=== PATIENT | male | born 1960 | race Caucasian/White ===

== ENCOUNTER → 2016-11-26 | Outpatient (CLI) | payer OTHER ==
[~2016-11-26] MED LIST: LEVAQUIN500 M2 PO; LEVOFLOXACIN500 MG PO; LISINOPRIL AND1 TA2 PO; LISINOPRIL10 MG; PERCOCET 325 MG1 TA7 PO; PERCOCET 325 MG1 TAB PO; VICODIN 5/500 505 MG PO
== END | disposition home or self-care (01) ==
LOC: LAB 08:35 → CARD 08:35
DX: R94.31 Abnormal electrocardiogram [ECG] [EKG] (principal)

== ENCOUNTER → 2019-12-26 | Outpatient (CLI) | payer OTHER | END | disposition home or self-care (01) | LOC: COVID19 04:58 | PROVIDERS: ATTEND Family Medicine | DX: J02.9 Acute pharyngitis, unspecified (principal); Z20.828 Contact with and (suspected) exposure to other viral communicable diseases ==